=== PATIENT | female | born 1970 | race Caucasian/White ===

== ENCOUNTER 2017-11-21 02:22 | Emergency (ER) | payer MEDICAID ==
[~2017-11-21] VITALS: Ht 167.6 cm; Wt 77.1 kg
[2017-11-21] MEDS ORDERED: Norco 5mg/325mg tab ONE (02:34)
[2017-11-21 02:45] VITALS: BP 126/81
[2017-11-21] MEDS ORDERED: Norco 5mg/325mg tab ORAL ONE (02:45)
[2017-11-21] MEDS ORDERED: HYDROCODON-ACE1 EA15 ORAL (03:20)
--- NOTE | 2017-11-21 03:21 | Emergency Room Report ---
History of Present Illness General Chief Complaint: Animal Bite Source: Patient Present Illness HPI Is a 47-year-old female who has a history of hepatitis C, HIV who presents with chief complaint of right finger pain. She was stung by a bee yesterday. There was a bee on her hair and it stung her right middle finger. She has a titanium ring on that finger. Now with swollen and unable to get it off. She went to a couple of hospital and there were unable to get off. Her friend try drill it and was unsuccessful. Pain is 10 out of 10. Swollen. Worse with movement. No other injury. Allergies: Coded Allergies: AZITHROMYCIN (Unverified Allergy, Unknown, 11/21/17) PENICILLINS (Unverified Allergy, Unknown, 11/21/17) SULFAMETHOXAZOLE (Unverified Allergy, Unknown, 11/21/17) TETRACYCLINE (Unverified Allergy, Unknown, 11/21/17) TRIMETHOPRIM (Unverified Allergy, Unknown, 11/21/17) Patient History Past Medical History: see triage record, old chart reviewed, HIV Past Surgical History: other Pertinent Family History: none Social History: Denies: smoking Last Menstrual Period: 11/17/17 Now: No : 6 Para: 6 Immunizations: other Reviewed Nursing Documentation: PMH: Agreed; PSxH: Agreed Nursing Documentation-PMH Hx Asthma: Yes Hx Seizures: Yes Review of Systems Eye: Denies: eye pain, blurred vision ENT: Denies: ear pain, nose congestion, throat swelling Respiratory: Denies: cough, shortness of breath Cardiovascular: Denies: chest pain, palpitations Gastrointestinal: Denies: abdominal pain, diarrhea, nausea, vomiting Musculoskeletal: Reports: joint pain, joint swelling, muscle pain; Denies: back pain Skin: Denies: rash Neurological: Denies: headache, numbness Endocrine: Denies: increased thirst, increased urine Hematologic/Lymphatic: Denies: easy bruising All Other Systems: negative except mentioned in HPI Physical Exam Vital Signs Date Time Temp Pulse Resp B/P (MAP) Pulse Ox O2 Delivery O2 Flow Rate FiO2 11/21/17 02:12 98.3 75 18 128/88 98 Room Air 98.2 vitals normal Sp02 EP Interpretation: reviewed, normal General Appearance: well appearing, no apparent distress, alert Head: normocephalic, atraumatic Eyes: bilateral eye PERRL, bilateral eye EOMI ENT: hearing grossly normal, normal pharynx Neck: full range of motion, supple, no meningismus Respiratory: chest non-tender, lungs clear, normal breath sounds Cardiovascular #1: regular rate, rhythm, no murmur Gastrointestinal: normal bowel sounds, non tender, no mass, no organomegaly, no bruit, non-distended Musculoskeletal: back normal, gait/station normal, other - Right ring finger: There is a bee sting on the middle phalanx on the volar aspect. There is swelling from the ring to the distal finger. Sensation normal. Psychiatric: mood/affect normal Skin: warm/dry Procedures Additional Procedure Procedure Narrative Procedure: Ring removal Indication: Constriction secondary to swelling Description: I wrapped the finger with a rubber band used to draw blood. Using a ring cutter I try to cut it but was unsuccessful. I use a wrench and was able to crack one side of the ring. Using two pliers, myself and a nurse were able to pull the ring apart. Patient tolerated procedure with some pain. No laceration. No trauma. Medical Decision Making Diagnostic Impression: Primary Impression: Bee sting reaction Qualified Codes: T63.441A - Toxic effect of venom of bees, accidental ( unintentional), initial encounter Additional Impression: Ring or other jewelry causing external constriction, initial encounter ER Course Patient resents with a Ring constriction secondary to swelling of her finger from a bee sting. No anaphylaxis. No infection. We will discharge home. Last Vital Signs Date Time Temp Pulse Resp B/P (MAP) Pulse Ox O2 Delivery O2 Flow Rate FiO2 11/21/17 03:12 98.3 11/21/17 02:12 75 18 128/88 98 Room Air Status: improved Disposition: HOME, SELF-CARE Condition: Stable Scripts Hydrocodone/Acetaminophen 5-325* (HYDROCODONE/ACETAMINOPHEN 5-325*) 1 Each Tablet 1 TAB ORAL Q6H PRN for For Pain, #15 TAB 0 Refills Prov: REHAN DALY M.D. 11/21/17 Referrals: NOT CHOSEN IPA/,REFERRING (PCP) Additional Instructions: Elevate the hand. Ice pack to the finger. Return for evidence of infection. Follow-up with your doctor in 7 days. REHAN DALY M.D. Nov 21, 2017 03:21
[2017-11-21 05:08] VITALS: BP 126/81
== END 2017-11-21 03:45 | disposition home or self-care (01) ==
LOC: EDBD 02:22 → EMR 02:32
DX: T63.441A Toxic effect of venom of bees, accidental (unintentional), initial encounter (principal); M79.89 Other specified soft tissue disorders; Y92.9 Unspecified place or not applicable; S60.454A Superficial foreign body of right ring finger, initial encounter; W49.04XA Ring or other jewelry causing external constriction, initial encounter; Z88.0 Allergy status to penicillin; Z88.2 Allergy status to sulfonamides; J45.909 Unspecified asthma, uncomplicated
CPT/HCPCS: 99283

== ENCOUNTER 2017-12-04 11:44 | Emergency (ER) | payer MEDICAID ==
[~2017-12-04] VITALS: Ht 162.6 cm; Wt 77.1 kg
[~2017-12-04 11:44] MED LIST: HYDROCODON-ACE1 EA15 ORAL
[2017-12-04] MEDS ORDERED: BACITRACIN-P28.35 GM TP (12:11)
[2017-12-04] MEDS ORDERED: PERMETHRIN60 GM TOPIC (12:11)
[2017-12-04] MEDS ORDERED: ZYRTEC10 MG ORAL (12:11)
--- NOTE | 2017-12-04 12:11 | Emergency Room Report ---
History of Present Illness General Chief Complaint: Skin Rash/Abscess Source: Patient, Medical Record Present Illness HPI 47-year-old female patient presents ER complaining of multiple bug bites on her lower extremities for a few days. states she was seen by urgent care yesterday and referred to ER if symptoms progressed or worsened. Reports she was using Benadryl and triamcinolone for relief of symptoms. Reports that she has been scratching the areas to the itchiness. Denies fever, chest pain, shortness breath, vomiting. Denies other acute symptoms. Denies contacts with similar symptoms. Allergies: Coded Allergies: AZITHROMYCIN (Unverified Allergy, Unknown, 11/21/17) PENICILLINS (Unverified Allergy, Unknown, 11/21/17) SULFAMETHOXAZOLE (Unverified Allergy, Unknown, 11/21/17) TETRACYCLINE (Unverified Allergy, Unknown, 11/21/17) TRIMETHOPRIM (Unverified Allergy, Unknown, 11/21/17) Patient History Past Medical History: see triage record Reviewed Nursing Documentation: PMH: Agreed; PSxH: Agreed Nursing Documentation-PMH Past Medical History: No History, Except For Hx Asthma: Yes Hx Seizures: Yes Review of Systems All Other Systems: negative except mentioned in HPI Physical Exam Vital Signs Date Time Temp Pulse Resp B/P (MAP) Pulse Ox O2 Delivery O2 Flow Rate FiO2 12/04/17 11:55 98.1 84 14 137/88 97 Room Air 98.1 Sp02 EP Interpretation: reviewed, normal General Appearance: well appearing, no apparent distress, alert, GCS 15, non- toxic Head: normocephalic, atraumatic Eyes: bilateral eye normal inspection, bilateral eye PERRL ENT: hearing grossly normal, normal pharynx, no angioedema, normal voice, uvula midline, moist mucus membranes Neck: full range of motion Respiratory: lungs clear, normal breath sounds, no rhonchi, no respiratory distress, no accessory muscle use, no wheezing, speaking full sentences Cardiovascular #1: regular rate, rhythm, no edema Musculoskeletal: back normal, digits/nails normal, gait/station normal, normal range of motion, non-tender Neurologic: alert, oriented x3, responsive, motor strength/tone normal, sensory intact Psychiatric: mood/affect normal Skin: rash - multiple areas of 1 cm erythematous urticaria with excoriations and some scabbing noted, no central clearing, no bite chavira, no surrounding tissue erythema and edema, no target lesion Medical Decision Making PA Attestation Dr. Kwok is my supervising Physician whom patient management has been discussed with. Diagnostic Impression: Primary Impression: Insect bite ER Course Pt. presents to the ED c/o bug bites. Ddx considered but are not limited to atopic dermatitis, bug bite, urticaria, allergic reaction. Vital signs: are WNL, pt. is afebrile ER COURSE: Due to past medical hx, will not provide oral steroids at this time. multiple excoriations noted, informed patient to stop scratching. No signs of cellulitis or abscess formation, no induration or fluctuance, no warmth to touch, afebrile, does not require oral abx at this time. Do not scratch, apply cool compresses to affected area. take Benadryl at night, take Zyrtec during the day to avoid drowsiness. Followup with PCP and request referral to derm. Patient resting comfortably, requesting socks and a sandwich. DISCHARGE: -Rx given for cetirizine for pruritic. advised patient on side effect of Benadryl SE may cause drowsiness.do not prior drinking, driving, operating machinery. continue taking medications as previously instructed.do not apply topical medications to face skin creases. Rx provided for bacitracin to cover for possible infection. Instructed on use. Rx provided for Permethrin -Patient instructed to apply warm compresses to affected area. At this time pt. is stable for d/c to home. Patient resting comfortably, in no acute distress, nontoxic appearing. Care plan and follow up instructions have been discussed with the patient prior to discharge. Patient provided with printed patient care instructions, and any necessary prescriptions. Patient instructed to follow-up with primary care provider in 3 - 5 days. Patient questions asked and answered. Patient reports understanding and agreement to treatment plan. ER precautions given. Patient instructed to return to ER immediately for any new or worsening of symptoms including but not limited to increasing SOB, persistent fever. - Please note that this Emergency Department Report was dictated using [employer] technology software, occasionally this can lead to erroneous entry secondary to interpretation by the dictation equipment. Last Vital Signs Date Time Temp Pulse Resp B/P (MAP) Pulse Ox O2 Delivery O2 Flow Rate FiO2 12/04/17 11:55 98.1 84 14 137/88 97 Room Air 98.1 Disposition: HOME, SELF-CARE Condition: Stable Scripts Bacitracin/Polymyxin B Sulfate (BACITRACIN-POLYMYXIN OINTMENT) 28.35 Gm Oint...g. 1 APPLIC TP BID, #28 GM Prov: Bolivar Hanson 12/04/17 Permethrin* (ELIMITE*) 60 Gm Cream..g. 1 APPLIC TOPIC ONCE, #60 GM 0 Refills Apply cream from head to toe; leave on for 8-14 hours before washing off with water; may reapply in 1 week if live mites appear. Prov: Bolivar Hanson 12/04/17 Cetirizine Hcl* (ZYRTEC*) 10 Mg Tablet 10 MG ORAL DAILY, #30 TAB 0 Refills Prov: Bolivar Hanson 12/04/17 Patient Instructions: Insect Bite, [id number] Additional Instructions: Followup with primary care provider in 3 -5 days. Request referral to dermatology. Do not scratch or itch. Apply cool compresses to affected area. Take medications as directed. Do not apply medication to face or skin creases. SE Benadryl drowsiness, do not take prior to drinking, driving, operating heavy machinery. Patient questions asked and answered. ER precautions given, patient instructed to return to ER immediately for any new or worsening of symptoms. [facility] Bolivar Hanson Dec 04, 2017 12:11
[2017-12-04 12:32] VITALS: BP 137/88
== END 2017-12-04 12:32 | disposition home or self-care (01) ==
LOC: EMR 12:07
DX: S80.862A Insect bite (nonvenomous), left lower leg, initial encounter (principal); S80.861A Insect bite (nonvenomous), right lower leg, initial encounter; W57.XXXA Bitten or stung by nonvenomous insect and other nonvenomous arthropods, initial encounter; Y92.9 Unspecified place or not applicable; R21 Rash and other nonspecific skin eruption; J45.909 Unspecified asthma, uncomplicated; Z88.0 Allergy status to penicillin; Z88.2 Allergy status to sulfonamides
CPT/HCPCS: 99283

== ENCOUNTER 2019-02-21 10:28 | Emergency (ER) | payer MEDICAID ==
[~2019-02-21] VITALS: Ht 165.1 cm; Wt 77.1 kg
[~2019-02-21 10:28] MED LIST changes: +BACITRACIN-P28.35 GM TP; +PERMETHRIN60 GM TOPIC; +ZYRTEC10 MG ORAL
[2019-02-21 10:30] VITALS: BP 119/81
--- NOTE | 2019-02-21 10:40 | NUR ---
ED Nurse Note: Pt walked in due to painful abscess on her right buttocks that started 4 days ago. Denies fever or discharge. AAO x4, ambulatory.
--- NOTE | 2019-02-21 11:10 | NUR ---
ED Nurse Note: Juice and sandwich given to pt.
[2019-02-21] MEDS ORDERED: HYDROcodone/Acetamin 5/325 tab ORAL ONE (11:15)
--- NOTE | 2019-02-21 12:29 | Emergency Room Report ---
History of Present Illness General Chief Complaint: Skin Rash/Abscess Source: Patient Present Illness HPI 48-year-old female presents to the emergency department complaining of 10/10 pain, swelling, erythema and purulent drainage from an abscess on the right upper buttock x4 days. Patient reports her symptoms were progressive. Patient states she began having purulent drainage after squeezing it last night. Patient states it is no longer draining. Patient states that she is currently taking antibiotics for symptoms and are not working. Patient shows that she was taking amoxicillin. Denies fevers, chills or lesions elsewhere on the body. Patient denies smoking history or drug use she reports intermittent alcohol use. She denies significant past medical history and denies history of immune compromise. No other aggravating or relieving factors at this time. Allergies: Coded Allergies: AZITHROMYCIN (Unverified Allergy, Unknown, 11/21/17) PENICILLINS (Unverified Allergy, Unknown, 11/21/17) SULFAMETHOXAZOLE (Unverified Allergy, Unknown, 11/21/17) TETRACYCLINE (Unverified Allergy, Unknown, 11/21/17) TRIMETHOPRIM (Unverified Allergy, Unknown, 11/21/17) Patient History Past Medical History: see triage record Past Surgical History: none Pertinent Family History: none Last Menstrual Period: 12/31/18 Now: No Reviewed Nursing Documentation: PMH: Agreed; PSxH: Agreed Nursing Documentation-PMH Past Medical History: No History, Except For Hx Asthma: Yes Hx Seizures: Yes Review of Systems All Other Systems: negative except mentioned in HPI Physical Exam Vital Signs Date Time Temp Pulse Resp B/P (MAP) Pulse Ox O2 Delivery O2 Flow Rate FiO2 02/21/19 10:30 97.9 98 17 119/81 99 Room Air Sp02 EP Interpretation: reviewed, normal General Appearance: no apparent distress, alert, GCS 15, non-toxic Head: normocephalic, atraumatic Eyes: bilateral eye normal inspection, bilateral eye PERRL ENT: hearing grossly normal, normal voice Neck: full range of motion Respiratory: chest non-tender, lungs clear, normal breath sounds, speaking full sentences Cardiovascular #1: regular rate, rhythm Musculoskeletal: back normal, gait/station normal, normal range of motion, non- tender Neurologic: alert, oriented x3, responsive, motor strength/tone normal, sensory intact, speech normal, grossly normal Psychiatric: judgement/insight normal Skin: other - necrotic abscess of the right upper buttock. scant purulent drainage, no bleeding, no blisters or vesicles. Lymphatic: no adenopathy Medical Decision Making PA Attestation Dr. Cunningham is my supervising Physician whom patient management has been discussed with. Diagnostic Impression: Primary Impression: Abscess ER Course 48-year-old female presents to the emergency department complaining of 10/10 pain, swelling, erythema and purulent drainage from an abscess on the right upper buttock x4 days. Patient reports her symptoms were progressive. Patient states she began having purulent drainage after squeezing it last night. Patient states it is no longer draining. Patient states that she is currently taking antibiotics for symptoms and are not working. Patient shows that she was taking amoxicillin. Denies fevers, chills or lesions elsewhere on the body. Patient denies smoking history or drug use she reports intermittent alcohol use. She denies significant past medical history and denies history of immune compromise. No other aggravating or relieving factors at this time. Ddx considered but are not limited to cellulitis, abscess, cystic acne, necrotizing fasciitis, insect bite. Vital signs: are WNL, pt. is afebrile H&PE are most consistent with necrotic abscess of the right upper buttock. scant purulent drainage at this time. 1cm in diameter. ORDERS: none required at this time, the diagnosis is clinical ED INTERVENTIONS: -[place] PO -I & D was recommended, however pt. declines at this time. DISCHARGE: At this time pt. is stable for d/c to home. Will provide printed patient care instructions, and any necessary prescriptions. Care plan and follow up instructions have been discussed with the patient prior to discharge. Last Vital Signs Date Time Temp Pulse Resp B/P (MAP) Pulse Ox O2 Delivery O2 Flow Rate FiO2 02/21/19 10:30 97.9 98 17 119/81 (94) 99 Room Air Disposition: HOME, SELF-CARE Condition: Stable Scripts Ibuprofen* (MOTRIN*) 600 Mg Tablet 600 MG ORAL THREE TIMES A DAY, #30 TAB 0 Refills Prov: Jessa Shaikh 02/21/19 Mupirocin* (MUPIROCIN*) 22 Gm Oint...g. 1 APPLIC TOPIC THREE TIMES A DAY, #22 GM Prov: Jessa Shaikh 02/21/19 Clindamycin Hcl (CLINDAMYCIN HCL) 300 Mg Capsule 300 MG ORAL FOUR TIMES A DAY for 7 Days, #28 CAP Prov: Jessa Shaikh 02/21/19 Referrals: NON PHYSICIAN (PCP) Patient Instructions: Abscess Additional Instructions: Take medications as directed. Follow up with a Primary Care Provider in 3-5 days, even if your symptoms have resolved. --Please review list of primary care clinics, if you do not already have a primary care provider Return sooner to ED if new symptoms occur, or current symptoms become worse. - Please note that this Emergency Department Report was dictated using [employer] physician office technology software, occasionally this can lead to erroneous entry secondary to interpretation by the dictation equipment. Jessa Shaikh Feb 21, 2019 12:29
[2019-02-21] MEDS ORDERED: CLINDAMYCIN HC300 MG ORAL (12:31)
[2019-02-21] MEDS ORDERED: IBUPROFEN600 MG ORAL (12:31)
[2019-02-21] MEDS ORDERED: MUPIROCIN22 GM TOPIC (12:31)
[2019-02-21 12:49] VITALS: BP 125/9
--- NOTE | 2019-02-21 12:49 | NUR ---
ER DISCHARGE NOTE: Patient is cleared to be discharged per PA, pt is aox4, on room air, with stable vital signs. pt was given dc and prescription instructions,community referral list provided. [facility] DC paper signed. pt was able to verbalize understanding, pt id band removed. pt is able to ambulate with steady gait. pt took all belongings.
== END 2019-02-21 12:49 | disposition home or self-care (01) ==
LOC: EMR 11:26
DX: L02.413 Cutaneous abscess of right upper limb (principal); J45.909 Unspecified asthma, uncomplicated; Z88.1 Allergy status to other antibiotic agents; Z88.0 Allergy status to penicillin; Z88.2 Allergy status to sulfonamides
CPT/HCPCS: 99282